=== PATIENT | male | born 2000 | race Caucasian/White ===

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

== ENCOUNTER 2021-03-04 08:51 | Emergency (ER) | payer MEDICAID, SELFPAY ==
[2021-03-04 09:00] VITALS: BP 133/75; PULSE 78; RESP 16; TEMP 36.3; O2SAT 97
--- NOTE | 2021-03-04 09:08 | W.ED.GENAD ---
Discharge Plan Disposition Patient Disposition: HOME Condition: Stable Discharge Details Clinical Impression: URI with cough and congestion, Shortness of breath Primary Care Provider: Navin Monteiro ED Provider: Aylin Poole Home Meds and New Rx's Prescriptions: New albuterol sulfate 90 mcg/actuation aerosol powdr breath activated 2 inh IH Q6H PRN (Reason: shortness of breath or wheezing) Qty: 1 RF: 0 benzonatate [Tessalon Perles] 100 mg capsule 100 mg PO TID PRN (Reason: cough) Qty: 14 RF: 0 budesonide-formoterol [Symbicort] 80-4.5 mcg/actuation HFA aerosol inhaler 2 puff inhalation BID Qty: 10.2 RF: 0 Continued riboflavin (vitamin B2) 400 mg tablet 400 mg PO DAILY Qty: 30 RF: 2 coenzyme Q10 100 mg capsule 100 mg PO DAILY Qty: 30 RF: 2 magnesium oxide 200 mg magnesium tablet 200 mg PO BID Qty: 60 RF: 2 albuterol sulfate 2.5 mg /3 mL (0.083 %) solution for nebulization 2.5 mg Inhalation Q4H PRN Qty: 1 RF: 1 budesonide-formoterol [Symbicort] 80-4.5 mcg/actuation HFA aerosol inhaler 2 puff Inhalation BID Qty: 2 RF: 3 montelukast [Singulair] 10 mg tablet 10 mg PO DAILY Qty: 60 RF: 4 albuterol sulfate [ProAir HFA] 90 mcg/actuation HFA aerosol inhaler 2 puff Inhalation Q4H PRN Qty: 8.5 RF: 6 Discharge Instructions Instructions: Upper Respiratory Infection (ED), Allergic Rhinitis (ED), Dyspnea (ED) Additional Instructions: Your symptoms may be due to an upper respiratory tract infection which is usually viral, allergies or a mild asthma exacerbation. Your chest x-ray did not note any evidence of pneumonia so there is not an indication for antibiotics at this time. Prescriptions for cough medication and refills for your albuterol and Symbicort were sent electronically to your pharmacy. Restart taking your Singulair tomorrow once daily as directed. Limit exposure to possible allergens as much as possible. Be sure to stay in a well aerated room if possible to minimize your exposure to possible allergens. Follow-up with your primary care doctor in 1 week. Return to the emergency department with any worsening or new concerning symptoms. Discharge Data Discharge Physician: Aylin Poole Medical Decision Making 0910 -- 20-year-old male with a history of asthma and allergic rhinitis who presents to the ED with complaint of intermittent cough, shortness of breath, wheezing for the past few weeks, worse over the past couple days. Vitals within normal limits. Patient appears comfortable and nontoxic. He appears to sniffle frequently throughout the exam. He has no signs of respiratory distress. His breath sounds are slightly diminished throughout but without rhonchi or wheezing. Normal ENT exam. Differential diagnosis includes URI, allergies, acute asthma exacerbation. History and presentation does not appear consistent with Covid or pneumonia. We will give a DuoNeb and a dose of Singulair and reassess. 1025 --patient reassessed and he states he feels slightly better. Reassessment of lung sounds note minimal improvement in air movement. There is no wheezing or rhonchi. Will obtain an EKG and chest x-ray and reassess. He is declining any additional nebs. EKG notes a rate of 63, sinus, no STEMI and nondiagnostic. Chest x-ray negative. Patient reassessed and he still feels slightly better at this time and is declining any additional nebs. Patient states he feels good to go home. He is advised to restart his Singulair. He is advised to continue his albuterol as needed and directed. We will send a prescription for cough medication electronically to his pharmacy. Do not see medication for steroids or antibiotics at this time. Advised to follow up with the primary care doctor for re-evaluation. Usual and customary return precautions given prior to discharge. Medical Records Medical records reviewed: Yes I reviewed the patient's medical records. Imaging Data Radiologic Study: Radiologist's impression: XR CHEST 2V PA LATERAL CLINICAL HISTORY: chest tightness, sob, r/o acute disease. TECHNIQUE: 2D digital imaging was performed. COMPARISON: CR XR CHEST 2V PA LATERAL from 08/16/2019 FINDINGS: Heart size is normal. The mediastinum is not widened. Lungs are clear. No infiltrates nor pleural effusions. IMPRESSION: No acute pulmonary findings. ECG Data Attestation: I personally reviewed and interpreted this ECG (s) as follows: Interpretation: Rate of 63, sinus, no STEMI. HPI General Mode of arrival: ambulatory. Date/Time Provider Initiated Documentation: 03/04/21 09:08. Limitations to Documentation: no limitations. Information obtained by: patient. 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 Patient states he wears a dust mask but states he felt some of these particles may have made his asthma worse. He states he has been occasionally coughing up white and yellow sputum. He denies any fever. He states he has also had a runny nose. He states he started using Symbicort 5 years ago and this is overall helped his asthma was last frequent attacks. He states he has been using his inhaler more frequently over the past few days. He states he has singular at home that he takes only during allergy season and has not taken it recently. Related Data Home Medications Medication Instructions Recorded Confirmed albuterol sulfate 2.5 mg INHALATION Q4H PRN #1 box 12/04/19 03/04/21 coenzyme Q10 100 mg capsule 100 mg PO DAILY #30 cap 07/30/20 03/04/21 magnesium oxide 200 mg PO BID #60 tab 07/30/20 03/04/21 riboflavin (vitamin B2) 400 mg 400 mg PO DAILY #30 tab 07/30/20 03/04/21 tablet budesonide-formoterol HFA 80 2 puff INHALATION BID #2 puff 08/27/20 03/04/21 mcg-4.5 mcg/actuation aerosol inhaler albuterol sulfate 90 mcg/actuation 2 puff INHALATION Q4H PRN #8.5 gm 12/17/20 03/04/21 aerosol inhaler montelukast 10 mg tablet 10 mg PO DAILY #60 tab-cap 12/17/20 03/04/21 albuterol sulfate 2 inh IH Q6H PRN #1 each 03/04/21 benzonatate [Tessalon Perles] 100 mg PO TID PRN #14 cap 03/04/21 budesonide-formoterol [Symbicort] 2 puff INHALATION BID #10.2 g 03/04/21 Previous Rx's Medication Instructions Recorded albuterol sulfate 2.5 mg INHALATION Q4H PRN #1 box 12/04/19 coenzyme Q10 100 mg capsule 100 mg PO DAILY #30 cap 07/30/20 magnesium oxide 200 mg PO BID #60 tab 07/30/20 riboflavin (vitamin B2) 400 mg 400 mg PO DAILY #30 tab 07/30/20 tablet budesonide-formoterol HFA 80 2 puff INHALATION BID #2 puff 08/27/20 mcg-4.5 mcg/actuation aerosol inhaler albuterol sulfate 90 mcg/actuation 2 puff INHALATION Q4H PRN #8.5 gm 12/17/20 aerosol inhaler montelukast 10 mg tablet 10 mg PO DAILY #60 tab-cap 12/17/20 albuterol sulfate 2 inh IH Q6H PRN #1 each 03/04/21 benzonatate [Tessalon Perles] 100 mg PO TID PRN #14 cap 03/04/21 budesonide-formoterol [Symbicort] 2 puff INHALATION BID #10.2 g 03/04/21 Allergies Allergy/AdvReac Type Severity Reaction Status Date / Time Penicillins Allergy Intermediate Hives Verified 03/04/21 09:03 dust mites Allergy Intermediate Wheezing Uncoded 03/04/21 09:03 seasonal allergies. Allergy Intermediate Wheezing Uncoded 03/04/21 09:03 General Stated Complaint: RespSymp MICKEY: 3 Review of Systems All systems reviewed & are unremarkable except as noted in HPI and below Constitutional Constitutional: Reports as per HPI, Denies chills and Denies fever(s) Eyes Eyes: Denies blurry vision ENT Ears, Nose, Mouth, and Throat: Denies dizziness, Reports nasal congestion, Reports nasal discharge, Denies sore throat and Denies throat swelling Cardiovascular Cardiovascular: Denies chest pain and Reports dyspnea Respiratory Respiratory: Reports cough and Reports dyspnea Gastrointestinal Gastrointestinal: Denies abdominal pain, Denies diarrhea and Denies vomiting Genitourinary Genitourinary: Denies hematuria and Denies dysuria Musculoskeletal Musculoskeletal: Denies back pain and Denies numbness Integumentary/Breasts Skin/Breast: Denies lesions and Denies rash Neurologic Neurologic: Denies dizziness, Denies localized weakness and Denies numbness Allergic/Immunologic Allergic/Immunologic: Denies throat swelling [facility] Medical History Allergic rhinitis (04/06/12) allergy consult with dust mite allergy 02/17 Allergy penicillin Asthma Asthma, moderate persistent (10/09/15) BMI (body mass index), pediatric, 5% to less than 85% for age (04/07/17) Concussion (09/07/11) Croup (07/10/02) Hemangioma 3 present at , head, left side and chest. Chest only one still present Left inguinal hernia (05/01/15) surgery consult 04/23 - likely repair spring 2015= surgery performed hyperbilirubinemia S/P bili lights Screening examination for infectious disease Tension type headache Surgical History Repair of inguinal hernia (06/26/15) left Family History Mother Mental disorder Depression/anxiety Other Heart disease Maternal great uncle ([place]) Neoplasm MGGF - prostate PGGM - Breast Social History (Updated 08/26/20 @ 12:00 by Valerie Camejo RN) Smoking/Tobacco Use Status: Never Smoking risk assessment performed?: Yes Alcohol Intake: never Drug use: Never Substance use type: does not use Household members: family Communication Needs: None Education Level: vocational Pets and animals: Yes Pets and animals: cat(s) and dog(s) Current gender identity: male Seatbelt use: always Helmet use: Yes Helmet use: always Water heater temp set <120 deg: Yes Fire extinguisher in home: Yes Carbon monox detector in home: Yes Firearms in home: Yes Firearms unloaded and locked: Yes Do you feel safe at home: Yes Do you feel safe in your relationship?: Yes Exam Const General: cooperative, healthy appearing and no acute distress HENMT Head: normal to inspection Ears: hearing grossly normal bilaterally, external ears normal and TM's normal bilaterally General nose exam: external nose normal Mouth: oral mucosae normal Throat: posterior oropharynx normal Eyes General: appearance normal, both eyes and all related structures Neck Neck: normal visual inspection Resp Effort & Inspection: normal respiratory effort and able to speak in complete sentences Auscultation: diminished lung sounds bilaterally throughout, no rales, no rhonchi and no wheezes Cardio Rate: regular rate Rhythm: regular rhythm Skin General skin exam: no rashes or lesions noted Neuro General: patient alert, patient awake and patient oriented x3 Motor: muscle tone normal throughout Extrem General: normal to inspection and full ROM Psych Appearance: grossly normal Affect: normal affect Course Vital Signs Vital signs: Vital Signs Temperature 97.3 F L 03/04/21 09:00 Pulse 78 03/04/21 09:00 Respiratory Rate 16 03/04/21 09:00 Blood Pressure 133/75 03/04/21 09:00 Pulse Oximetry 97 03/04/21 09:00 Temperature 97.3 F L 03/04/21 09:00 Temperature Source Skin 03/04/21 09:00 Pulse 78 03/04/21 09:00 Respiratory Rate 16 03/04/21 09:00 Respiratory Effort 03/04/21 09:00 Blood Pressure 133/75 03/04/21 09:00 Blood Pressure Position Sitting 03/04/21 09:00 Pulse Oximetry 97 03/04/21 09:00 Oxygen Delivery Method Room Air 03/04/21 09:00 Oxygen Flow Rate 0 03/04/21 09:00 Pain Level 0 03/04/21 09:00
[2021-03-04 09:40] VITALS: RESP 1; RESP 17; RESP 8; O2SAT 97
[2021-03-04] MEDS: Albuterol/Ipratropium 3 ML UPD VIAL UPD (09:40)
[2021-03-04 09:41] VITALS: RESP 1; RESP 17; RESP 8; O2SAT 99
[2021-03-04] MEDS: Montelukast 10 MG TAB PO (09:51)
--- NOTE | 2021-03-04 10:30 | RT.EKG_ITS ---
APPROVED REPORT Exam: Resting ECG Reason for Exam: chest tightness Patient Location: E HR:63 bpm ECG Measurements Heart Rate 63 AXIS IA 148 P 57 QRSd 92 QRS 80 QT 382 T 58 QTc 390 Conclusion Sinus rhythm...normal P axis, V-rate 60- 99 Sinus. I have reviewed and interpreted ECG and agree with software generated interpretation. No STEMI.
--- NOTE | 2021-03-04 10:53 | DI.RAD_ITS ---
Exam(s) XR CHEST 2V PA LATERAL EXAM: XR CHEST 2V PA LATERAL CLINICAL HISTORY: chest tightness, sob, r/o acute disease. TECHNIQUE: 2D digital imaging was performed. COMPARISON: CR XR CHEST 2V PA LATERAL from 08/16/2019 FINDINGS: Heart size is normal. The mediastinum is not widened. Lungs are clear. No infiltrates nor pleural effusions. IMPRESSION: No acute pulmonary findings. DATA REPOSITORY: RADIATION DOSE DELIVERED:
[2021-03-04 11:58] VITALS: BP 108/69; PULSE 74; RESP 18; TEMP 36.6; O2SAT 97
[2021-03-04 12:05] VITALS: BP 108/69; PULSE 74; RESP 18; TEMP 36.6; O2SAT 5
== END 2021-03-04 12:00 | disposition home or self-care (01) ==
PROVIDERS: Emergency Provider Physician Assistant; PCP Pediatrics
DX: J06.9 Acute upper respiratory infection, unspecified (principal); R05 Cough; J45.909 Unspecified asthma, uncomplicated; R06.02 Shortness of breath
CPT/HCPCS: 93005; 94640; 99284; 71046; 93010; J7620